=== PATIENT | male | born 1985 | race Two or more races ===

== ENCOUNTER 2021-01-18 17:15 | Emergency (ER) | payer OTHER | END 2021-01-18 21:23 | disposition other institution (70) | LOC: FER 17:15 | DX: S10.95XA Superficial foreign body of unspecified part of neck, initial encounter (principal); S00.85XA Superficial foreign body of other part of head, initial encounter; Z23 Encounter for immunization; W45.8XXA Other foreign body or object entering through skin, initial encounter | CPT/HCPCS: 70450; 72125; 90471; 90715 ==